=== PATIENT | male | born 1955 | race Caucasian/White ===

== ENCOUNTER 2019-04-22 12:58 | Inpatient (IN) | payer BC ==
[~2019-04-22] VITALS: Ht 182.9 cm; Wt 145.1 kg
[~2019-04-22 12:58] MED LIST: BACTRIM DS TAB1 EACH; CIPRO500 MG PO; HYDROCODON-ACE1 EAC5 PO; LISINOPRIL20 MG PO
[2019-04-22 14:22] VITALS: BP 148/76
[2019-04-22 14:39] LABS: HEMATOCRIT 37.4 % (42.0-52.0); HEMOGLOBIN 12.6 gm/dL (14.0-18.0); MCH 29.2 pg (26.0-34.0); MCHC 33.6 g/dL (28.0-37.0); MCV 86.8 fL (80.0-100.0); RBC 4.31 mil/uL (4.50-6.00); RDW 13.8 % (10.5-14.5); WBC 10.1 thou/uL (4.0-11.0)
[2019-04-22 14:53] LABS: CALCIUM 9.4 mg/dL (8.5-10.1); CREATININE 1.4 mg/dL (0.7-1.3)
[2019-04-22 19:00] VITALS: BP 172/92
[2019-04-22 19:47] VITALS: BP 164/80
--- NOTE | 2019-04-22 20:22 | NUR ---
PATIENT ARRIVED TO FLOOR VIA BED AT 1840, DROWSY BUT EASILY AROUSED. ORIENTED X 4. WITH PATIENT. HEMOVAC IN PLACE TO LEFT KNEE DRAINING SANGUINOUS DRAINAGE. RADHA DRESSING COMPRESSED AND INTACT. PROVIDED SOME ICE CHIPS. ICE BAG IN PLACE TO LEFT KNEE. REPORT GIVEN TO MARGARITA HUMMEL.
[2019-04-22 23:50] VITALS: BP 133/64
--- NOTE | 2019-04-23 03:27 | NUR ---
ASSUMED CARE OF PT AT 1900HRS. PT IS AOX4 AND LETS NEEDS BE KNOWN. PT IS POST PROCEDURE DAY 0 AND DOES NOT HAVE ANY S/S OF COMPLICATIONS. FALL PRECAUTIONS IS IN PLACE. IS AT BEDSIDE. PT WAS ABLE TO GET COMFORTABLE AND SLEEP PART OF THE SHIFT. PT VOIDED. WILL CONTINUE TO MONITOR.
[2019-04-23 04:00] VITALS: BP 133/68
[2019-04-23 05:43] LABS: HEMATOCRIT 34.1 % (42.0-52.0); HEMOGLOBIN 11.5 gm/dL (14.0-18.0); MCH 29.3 pg (26.0-34.0); MCHC 33.6 g/dL (28.0-37.0); MCV 87.2 fL (80.0-100.0); RBC 3.91 mil/uL (4.50-6.00); RDW 13.8 % (10.5-14.5); WBC 8.5 thou/uL (4.0-11.0)
[2019-04-23 08:45] VITALS: BP 157/76
--- NOTE | 2019-04-23 08:48 | O ---
[facility] [place] [address] OPERATIVE REPORT Name: NANDO SANDERS Room #: 454-P [facility] IN M.R.#: [id number] Admission: 04/22/19 Attend Phys: Zen Shaikh MD Discharge: Date of : 53 Report #: [id number] THIS REPORT FOR: //name// CC: XU physician/PCP FAM unknown RONALDO PARKER Zen Shaikh DATE OF SERVICE: 04/22/2019 PREOPERATIVE DIAGNOSIS: Left unicompartmental knee arthroplasty infection. POSTOPERATIVE DIAGNOSIS: Left unicompartmental knee arthroplasty infection. PROCEDURE: I and D of left unicompartmental knee arthroplasty. SURGEON: Zen Shaikh MD CHARGE MASTER COORDINATOR: Lyndsay Maguire PA-C. ANESTHESIA: LMA. ESTIMATED BLOOD LOSS: 25 mL. SPECIMENS: Cultures were taken x 2. COMPLICATIONS: None. CONDITION UPON LEAVING THE OPERATING ROOM: Stable. INDICATIONS FOR PROCEDURE: The patient is a 63-year-old gentleman who had a left unicompartmental knee done on 03/21/2019. He did well up until about a week ago where he started to experience increasing pain and this morning, he started having drainage from his incision and presented to the office today with slight erythema surrounding his incision as well as serosanguineous drainage. It was felt that he perhaps had a postoperative hematoma versus a deep infection. After discussion with he and his , they elected for I and D of his left knee. DESCRIPTION OF PROCEDURE: Risks, benefits, alternatives, complications were discussed in detail with the patient including but not limited to risk of anesthesia, risk of damage to nerves, arteries, blood vessels, risk for infection, bleeding, risk for continued infection, need for reoperation including stage explantation with reimplantation. Informed consent was obtained from the patient. Left knee was appropriately marked in the preoperative holding area. Preoperative antibiotics were held until intraoperative cultures [address] [address] OPERATIVE REPORT Name: NANDO SANDERS Room #: 454-P [facility] IN M.R.#: [id number] Admission: 04/22/19 Attend Phys: Zen Shaikh MD Discharge: Date of : 53 Report #: [id number] could be obtained. The patient was brought to the operating room and placed in supine position on the operating room table. LMA anesthesia was induced without complications. Left lower extremity was prepped and draped in normal sterile fashion. Timeout was performed, properly identifying the patient and procedure as well as the instrumentation. All in the operating room were in agreement. The incision was then opened with a 10 blade and monitored deep tissues, there was a large amount of cloudy fluid. Cultures of this were taken. The medial retinacular repair was opened and there was cloudy fluid noted in the joint. Cultures of this were also taken. The knee was then thoroughly irrigated with normal saline using pulse lavage and the retinacular tear, an opening was repaired with 0 Vicryl. A drain was placed deep in the joint as well as superficial to the fascial closure. A gram of vancomycin was placed deep in the joint prior to closure. The skin was closed with 2-0 Vicryl, skin belinda and a RADHA dressing was applied. The patient tolerated this procedure well and went to the recovery room under care of anesthesia postoperatively. <ELECTRONICALLY SIGNED> By: Zen Shaikh MD 04/23/19 0848 [id number] Zen Shaikh MD /nt
--- NOTE | 2019-04-23 15:19 | NUR ---
dp sent referral to [facility], dp notified Juanjo at [facility] of referral
[2019-04-23 15:45] VITALS: BP 162/81
--- NOTE | 2019-04-23 16:34 | NUR ---
PT A&OX4, VSS, PAIN IN RIGHT KNEE. PAIN MANAGED WITH REPOSITIONING, ICE PACK, AND MEDICATION. PATIENT HAS REFUSED THERAPY D/T PAIN. THIS NURSE IS GIVING PAIN MEDICATON OFTEN POSSIBLE. PATIENT ABLE TO PIVOT ON OPPOSITE LEG TO BEDSIDE COMMODE. BOWEL SOUNDS ACTIVE, URINATING, NO BM YET. ORDER FOR PICC PLACED, LUCIANA YEN/SUNIL IN PLACE. WILL CONTINUE TO MONITOR.
--- NOTE | 2019-04-23 16:43 | NUR ---
PT ADMITTED RETLATED TO LEFT KNEE PAIN AND DRAINAGE. CM REVIEWED CHART AND SPOKE WITH CARE TEAM. CM MET WITH PT AT BEDSIDE THIS DAY. CM MET WITH PT AND SPOUSE AT BEDSIDE THIS DAY. PT IS A&O X4. CM ROLE INTRODUCED. PT INDICATED HE LIVES IN A HOUSE WITH HIS SPOUSE WITH 2 STEPS TO ENTER AND NO STEPS INSIDE. PT INDICATED HE HAS A SCOOTER, FWW, CRUTCHES, AND A WHEELCHAIR FOR HOME USE. PT INDICATED HIS PCP WILL BE DR. DALLAS KENNY. HE INDICATED HE HAD HOME INFUSION IN THE [place]. CM SENT REFERRAL TO [facility] AND THEY INDICATED THAT PT IS COVERED AT %100 FOR HOME INFUSION UPON DC. CM TO FOLLOW INDICATED WITH DC PLANNING.
--- NOTE | 2019-04-23 18:46 | NUR ---
VASCULAR ACCESS CONSULTED FOR PICC PLACEMENT.PT'S LABS,MEDS,HISTORY ,ORDER AND CONSENT REVIEWED. DISCUSSED BENEFITS AND RISKS OF PICC WITH PT, VERBALIZED UNDERSTANDING. SRIKANTH BASILIC WAS WIDELY PATENT WITH USG. 4FR SL POWER PICC TRIMMED TO 50CM INSERTED TO 0CM EXTERNAL PER HOSPITAL P&P. PT TOLERATED WELL. STAT CXR ORDERED
[2019-04-23 20:00] VITALS: BP 163/74
--- NOTE | 2019-04-23 20:29 | NUR ---
PICC REPOSITIONED WITHDREW TOTAL OF 4CM AFTER SEVERAL CXR'S. MELISSA MUNOZ. PICC RELEASED FOR IMMEDIATE USE PER PROTOCOL TO JONATHAN AVILA
--- NOTE | 2019-04-24 04:31 | NUR ---
PATIENT ALERT AND ORIENTED X4. AT BEDSIDE. PT AGGITATED BECAUSE NOT GETTING THE PAIN MED HE IS USED TO GETTING AT HOME. CALLED DR MENIDETA'S OFFICE TO INCREASE, IT WAS. AFTER HIS ANSWERING SERVICE CALLED SEVERAL TIMES . DRESSING ON L KNEE DRY AND INTACT. PASSING FLATUS BUT NO BM YET. SLEPT OFF AND ON DURING NIGHT.
[2019-04-24 07:45] VITALS: BP 161/92
[2019-04-24 08:21] LABS: HEMATOCRIT 34.1 % (42.0-52.0); HEMOGLOBIN 11.5 gm/dL (14.0-18.0); MCH 29.3 pg (26.0-34.0); MCHC 33.7 g/dL (28.0-37.0); MCV 86.8 fL (80.0-100.0); RBC 3.93 mil/uL (4.50-6.00); WBC 9.3 thou/uL (4.0-11.0)
--- NOTE | 2019-04-24 10:56 | NUR ---
pt resting in bed alert xs 4 pt had some complaints that this nurse tried to resolve. including pain meds and therapy. pt seems more at ease.
--- NOTE | 2019-04-24 15:12 | NUR ---
wedding planner sent HH referral to [facility], patient to dc tomorrow and will be on iv antibiotics provided by [facility]. DP called [facility] and spoke with Cathy to make sure they received. Cathy verified they received referral.
[2019-04-24 15:25] VITALS: BP 165/77
--- NOTE | 2019-04-24 16:35 | NUR ---
CM SENT REFERRAL TO [facility] AND PT IS COVERED AT 100% FOR HOME INFUSION WITH THEM UPON DC. CM SENT REFERRAL TO [facility]. THEY ARE ABLE TO ACCEPT PT AND ARE AWAITING ORDERS. CM TO FOLLOW INDICATED WITH DC PLANNING.
[2019-04-24 20:19] VITALS: BP 137/82
--- NOTE | 2019-04-24 20:27 | NUR ---
PT UP IN RECLINER HAS TRIED TO WORK WITH THERAPY. MEDIACATION CHANGES SEE MAR. CONT ON IV ABT. RIGHT UPPER ARM PICC. PICCO DRESSING TO LEFT KNEE. PATIENT HAD X- LARGE BM TODAY. LUCIANA YEN ON. HAS SCD'S. STARTED LISINOPRIL. 40 MG PO DAILY. AT BEDSIDE. PT PLEASANT AND COOPERATIVE WITH CARE.
--- NOTE | 2019-04-24 22:13 | HC ---
[facility] [place] [address] CONSULTATION Name: NANDO SANDERS Room #: 454-P ADM IN M.R.#: [id number] Admission: 04/22/19 Attend Phys: Zen Shaikh MD Discharge: Date of : 53 Report #: [id number] THIS REPORT FOR: //name// CC: XU physician/PCP FAM unknown RONALDO ELENADillon DATE OF SERVICE: 04/22/2019 REASON FOR CONSULTATION: I was asked to evaluate concerning left unicompartmental knee arthroplasty, prosthetic joint infection. HISTORY OF PRESENT ILLNESS: The patient is a 63-year-old with history of degenerative arthritis. He had undergone a left unicompartmental knee arthroplasty on 03/21/2019. He noticed significant amount of postoperative pain, but was doing well with rehabilitation. 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 From discussion with the patient and his , it appears that he was doing a lot of activity including getting in and out of tractors and alike. Five days ago, had the acute onset of left knee pain and swelling. There was no drainage from his incision. The next day, he noticed chills and worsening pain. He called Dr. Shaikh who placed him on cephalexin. It was noted when he presented to his outpatient clinic that there was some serosanguineous drainage from his incision. He was therefore hospitalized after incision and drainage procedure. Cultures are pending. He is placed on vancomycin. Since hospitalization, he has been afebrile. He has a significant amount of pain. He has had a prior history of a Staph infection involving his right ankle several years ago. He has had no residual issues since then. He has had no recent dental work or other invasive procedures. Denies any other skin lesions. No history of MRSA infection. REVIEW OF SYSTEMS: Ten-point review was negative other than what is described above. ALLERGIES: None known. MEDICATIONS: As noted on his MAR including now vancomycin. SOCIAL HISTORY: He is a nonsmoker with no significant alcohol intake. Lives in [place] on a farm with his . FAMILY HISTORY: Noncontributory. PAST MEDICAL HISTORY: Hypertension, right lower leg hardware infection in 2013. Degenerative arthritis. He had a cholecystectomy, back surgery. [address] [address] CONSULTATION Name: NANDO SANDERS Room #: 454-P [facility] IN .R.#: [id number] Admission: 04/22/19 Attend Phys: Zen Shaikh MD Discharge: Date of : 53 Report #: [id number] PHYSICAL EXAMINATION: VITAL SIGNS: Afebrile and hemodynamically stable. Alert and cooperative. He is in a moderate amount of pain. SKIN: Without rash or decubitus. No palpable adenopathy. HEENT: Eyes, without scleral icterus. Mouth without mucositis. NECK: Supple. LUNGS: Clear. HEART: Regular, without murmur. ABDOMEN: Soft and nontender with no hepatosplenomegaly or mass. GENITAL AND RECTAL: Not performed. EXTREMITIES: Left knee had erythema surrounding the incision, mostly in the lower aspect. Moderate tenderness to palpation. RADHA dressing in place. 1+ edema involving the lower leg. Sensation intact in the left foot. Pulses were palpable, left foot. LABORATORY STUDIES: Reviewed. Sedimentation rate 93. CRP 311. Hemoglobin 11.5, WBC 8.5, platelet 271,000. Sodium 136, potassium 4, bicarbonate 22, creatinine 1.4. IMPRESSION: 1. A 63-year-old with left knee unicompartmental prosthesis for degenerative arthritis with early prosthetic joint infection. 2. Degenerative arthritis. 3. Acute renal insufficiency. RECOMMENDATION: We will continue vancomycin. Place a PICC catheter to arrange outpatient IV antibiotic infusion. He is postoperative day #1 from surgical debridement and retained prosthesis. We will adjust antibiotics pending culture results. <ELECTRONICALLY SIGNED> By: Morgan العلي MD 04/24/19 2213 [id number] [id number] Morgan العلي MD /nt
[2019-04-25 04:15] VITALS: BP 155/86
[2019-04-25 06:37] LABS: HEMATOCRIT 34.4 % (42.0-52.0); HEMOGLOBIN 11.6 gm/dL (14.0-18.0); MCH 29.1 pg (26.0-34.0); MCHC 33.9 g/dL (28.0-37.0); MCV 85.9 fL (80.0-100.0); RDW 13.9 % (10.5-14.5); WBC 8.1 thou/uL (4.0-11.0)
--- NOTE | 2019-04-25 07:54 | NUR ---
Assumed pt care at 1900. Pt is A/OX4,VSS. Up with min assist RW/GB. RADHA dsg patent on left knee with small serosanguineous drainage on proximal side. Medicated for pain with Oxy/Hydroxyzine with some relief reported. Resting at this time with no distress noted.
[2019-04-25 08:33] VITALS: BP 158/72
[2019-04-25 09:52] VITALS: BP 158/72
--- NOTE | 2019-04-25 10:12 | NUR ---
non profit financial controller sent operative reports to [facility]. .
--- NOTE | 2019-04-25 14:26 | NUR ---
PHYSICIAN INDICATED THAT PT ISN'T YET MEDICALLY STABLE TO DISCHARGE. ORTHO IS GOING TO TAKE PT FOR ANOTHER WASH OUT TOMRROW. CM NOTIFIED [facility] AND [facility]. BOTH CONTINUE TO FOLLOW FOR NEEDS UPON DC. CM TO FOLLOW INIDCATED WITH DC PLANNING.
[2019-04-25 17:58] VITALS: BP 154/80
--- NOTE | 2019-04-25 19:36 | NUR ---
Assumed care of pt at 0700. Pt alert and oriented x4. Dressing on left knee removed by surgeon. Light dressing placed on lt knee. Pt states pain is still uncontrolled. IV pain med administered. Surgery scheduled for tomorrow. Npo after midnight. Report given to oncoming RN.
[2019-04-25 19:40] VITALS: BP 161/82
[2019-04-26] VITALS (11 sets, daily range): BP systolic 122–161; BP diastolic 72–99
--- NOTE | 2019-04-26 01:51 | NUR ---
PATIENT IS AOX4 MAKES NEEDS KNOWN.CARE ASSUMED AT 1900, PATIENT WAS UP ON THE RECLINER UPSET D/T BEING IN PAIN FOR MANY YEARS. PATIENT IS NPO SINCE MIDNIGHT. PAIN CONTROLLED THIS SHIFT. LEFT KNEE DRESSING C/D/I. PATIENT WAS FRUSTRATED THIS SHIFT D/T INCREASED PAIN, PATIENT CONTINUES TO SAY HE NEEDS HIS LEG AMPUTATED AND THINKS THE PROCEDURE IN THE AM IS A WASTE OF TIME. PATIENT REASSURED BY THIS NURSE, THAT PAIN WILL BE CONTROLLED THIS SHIFT.PATIENT ASLEEP AT THIS TIME NO S/S OF PAIN OR DISCOMFORT. PATIENT NEEDS MAXIMUM ASSISTANCE WITH ADL, BED MOBILITY, TRANSFER AND TOILETING. SPOUSE AT BEDSIDE. PATIENT IN BED ASLEEP AT THIS TIME BREATHING REGULAR AND UNLABOURED.
[2019-04-26 05:16] LABS: HEMATOCRIT 35.2 % (42.0-52.0); HEMOGLOBIN 11.9 gm/dL (14.0-18.0); MCH 29.1 pg (26.0-34.0); MCHC 33.9 g/dL (28.0-37.0); MCV 85.8 fL (80.0-100.0); RBC 4.11 mil/uL (4.50-6.00); RDW 13.7 % (10.5-14.5); WBC 9.7 thou/uL (4.0-11.0)
[2019-04-26 05:26] LABS: CALCIUM 8.8 mg/dL (8.5-10.1); CREATININE 0.9 mg/dL (0.7-1.3); POTASSIUM 4.2 mmol/L (3.5-5.1)
--- NOTE | 2019-04-26 10:17 | NUR ---
Assess due to high BMI 43.4=extreme class III obesity. Admit for left knee sepsis/infection. I/D 04/22 and back to surgery today so npo status. Previously tolerating regular diet. Wt loss would be beneficial in recovery process. Available for consult if pt shows interest. Low nutrition risk
--- NOTE | 2019-04-26 15:03 | NUR ---
PATIENT CARE WAS ASSUMED AT 0715.PATIENT IS ALERT AND ORIETNED X4.PATIENT HAS PAIN IN LEFT KNEE AND RATES PAIN 10/10 WITH AND WITHOUT PAIN MEDS.LEFT KNEE IS SWOLLEN AND RED.PATIENT HAS BEEN NPO AFTER MIDNIGHT FOR PROCEDURE TO DO AND I&D/CLEAN WOUND OUT.CONSENT WAS SIGNED AND PLACED IN CHART. IS AT BEDSIDE.PT IS RESTING IN BED,WITH LEFT LEG ELEVATED.PT HAS CALL LIGHT,PHONE, AND PERSONAL BELONGINGS ARE WITHIN REACH.
--- NOTE | 2019-04-26 16:17 | NUR ---
CARE TEAM INDICATED THAT PT WILL LIKELY BE HERE OVER THE WEEKEND THEY DID ANOTHER WASH OUT TODAY. CM TO FOLLOW INDICATED WITH DC PLANNING. [facility] ARE FOLLOWING.
[2019-04-27 04:09] VITALS: BP 139/77
--- NOTE | 2019-04-27 04:52 | NUR ---
ASSUMED CARE OF PT AT 1900HRS. PT AOX4 AND LETS NEEDS BE KNOWN. FALL PRECAUTION IN PLACE. IS AT BEDSIDE. PT REPORTED SOME PAIN BUT SCHEDULED PAIN MEDS WERE ADEQUATE. ABX TREATMENT CONTINUED. WILL CONTINUE TO MONITOR.
--- NOTE | 2019-04-27 08:16 | O ---
[facility] [place] [place] [address] OPERATIVE REPORT Name: NANDO SANDERS Room #: 454-P ADM IN M.R.#: [id number] Admission: 04/22/19 Attend Phys: Zen Shaikh MD Discharge: Date of : 53 Report #: [id number] THIS REPORT FOR: //name// CC: XU physician/PCP FAM unknown RONALDO PARKER Zen Shaikh DATE OF SERVICE: 04/26/2019 PREOPERATIVE DIAGNOSIS: Infected left unicompartmental knee arthroplasty. POSTOPERATIVE DIAGNOSIS: Infected left unicompartmental knee arthroplasty. PROCEDURE PERFORMED: Irrigation and debridement of left unicompartmental knee arthroplasty with polyethylene exchange. SURGEON: Zen Shaikh M.D. TELEPHONE SERVICES SALES REPRESENTATIVE: Lyndsay Maguire PA-C. ANESTHESIA: LMA. TOURNIQUET TIME: 26 minutes. ESTIMATED BLOOD LOSS: 25 mL. COMPLICATIONS: None. SPECIMENS: Cultures were taken and sent. CONDITION UPON LEAVING THE OPERATING ROOM: Stable. INDICATIONS FOR PROCEDURE: The patient is a 63-year-old gentleman who previously had undergone I and D for an infected left unicompartmental knee arthroplasty 4 days ago. He has had increasing pain and drainage. It was decided to bring him back for repeat I and D with polyethylene exchange. He has grown out Staph aureus on his previous cultures. DESCRIPTION OF PROCEDURE: Risks, benefits, alternatives, complications were discussed in detail with the patient including but not limited to risk of anesthesia, risk of damage to nerves, arteries, blood vessels, risk for infection, bleeding, risk for continued infection, need for explantation and 2 staged procedure. Informed consent was obtained from the patient. The left knee was appropriately marked in the preoperative holding area. IV vancomycin was previously on board for preoperative antibiotics. He was brought to the [address] [address] OPERATIVE REPORT Name: NANDO SANDERS Room #: 454-P [facility] IN M.R.#: [id number] Admission: 04/22/19 Attend Phys: Zen Shaikh MD Discharge: Date of : 53 Report #: [id number] operating room and placed in supine position on operating room table. LMA anesthesia was induced without complication. Tourniquet was placed on the left thigh. Left lower extremity was prepped and draped in normal sterile fashion. Timeout was performed properly identifying the patient and procedure as well as instrumentation. All in the operating room were in agreement. The previous incision was then opened and dissection was easily taken down to the fascia. The fascia was opened and the previously placed sutures were removed. Cultures of the fluid were taken. The polyethylene liner for the unicompartmental knee was removed and the knee was thoroughly irrigated with normal saline using pulse lavage. After this, a new polyethylene liner size 9 was placed and a deep drain was placed and a gram of vancomycin was placed deep in the joint. Fascia was closed with 0 Vicryl, skin was closed with 2-0 Vicryl, 3-0 nylon and a RADHA dressing was applied. The patient tolerated this procedure well and went to recovery room under care of anesthesia postoperatively. <ELECTRONICALLY SIGNED> By: Zen Shaikh MD 04/27/19 0816 1544 [id number] Zen Shaikh MD /nt
[2019-04-27 08:55] VITALS: BP 164/85
--- NOTE | 2019-04-27 12:18 | NUR ---
Assumed pt care at 7am.Pt in bed very frustrated and depressed,cursing everytime he has to move his left leg.Emotional support given but pt wanted to talk to infectious dx doctor about plan to change iv antibiotic today.Dr العلي notified and message left via ans. service.Dr Shaikh and True here,order noted.Pt in chair at present with at bs.Medicated pt scheduled meds and prn.Will continue to monitor.
[2019-04-27 15:10] VITALS: BP 118/70
[2019-04-27 19:23] VITALS: BP 116/72
--- NOTE | 2019-04-28 04:40 | NUR ---
Pt. rested quietly during the night when checked on during frequent rounds. He does c/o pain to his left knee and scheduled pain meds given with adequate pain control. at the bedside all shift. Dressing to left knee is intact.
[2019-04-28 07:25] VITALS: BP 150/75
[2019-04-28 13:45] VITALS: BP 165/91
[2019-04-28 19:34] VITALS: BP 150/78
--- NOTE | 2019-04-28 21:23 | NUR ---
PT A&OX4, VSS, PAIN IN LEFT KNEE MANAGED WITH MEDICATION AND ICE PACKS. AT BEDSIDE. ANTIBIOTICS HUNG PER ORDERS. PATIENT HAS SENSATION IN LEFT LEG, COLOR IS APPROPRIATE FOR RACE, CAN MOVE TOES, PULSE 2+ AND WARM TO TOUCH. FALL PRECAUTIONS IN PLACE. NO SIGNS OF DISTRESS, SOA, OR CHEST PAIN. WILL CONTINUE TO MONITOR.
--- NOTE | 2019-04-29 05:18 | NUR ---
Pt. rested quietly at intervals during the night when checked on during frequent rounds. He c/o pain to his left knee and scheduled pain meds given (see emar) with some relief of pain noted. Dressing to his left knee is intact. at the bedside all shift.
[2019-04-29 08:12] VITALS: BP 126/64
--- NOTE | 2019-04-29 13:58 | NUR ---
CM FOLLOWED UP WITH PT AND SPOUSE AT BEDSIDE THIS AM. CM INDICATED THAT'S SUPPLIES AND DRUG FOR HOME INFUSION UPON DC IS COVERED AT 100% AND THAT [facility] IS ABLE TO ACCEPT FOR ADMISSION UPON DC. CM FAXED UPDATED DRUG ORDER TO [facility] AND IT WAS RECIEVED AND BENEFIT VERIFIED. CM TO FOLLOW INDICATED WITH DC PLANNING.
[2019-04-29 14:19] VITALS: BP 158/72
[2019-04-29] MEDS ORDERED: CYCLOBENZAPRINE5 MG PO (15:31)
[2019-04-29] MEDS ORDERED: NEURONTIN 300300 M1 PO (15:31)
[2019-04-29] MEDS ORDERED: NAPROXEN250 MG PO (15:31)
--- NOTE | 2019-04-29 17:02 | NUR ---
PT SET UP WITH [facility] AND [facility]. NEED MEDS COMPLETED IN THE DC ORDERS [facility] CAN'T DELIVER UNTIL THEY RECIEVE SIGNED ORDERS. CM MOTIFIED [facility] AND [facility] THAT PT WILL DC HOME TOMORROW.
--- NOTE | 2019-04-29 18:14 | NUR ---
PT STABLE THROUGHUT SHIFT. PAIN MEDICATION APPEARED TO CONTROL PAIN SUCCESSFULLY. PT UP TO CHAIR FOR SEVERAL HOURS WHICH HE TOLERATED WELL. PT WORKED WITH PT, FALL PRECAUTIONS IN PLACE.
[2019-04-29 19:26] VITALS: BP 117/65
--- NOTE | 2019-04-30 04:03 | NUR ---
Pt. rested quietly at intervals during the night when checked on during frequent rounds. He did have a dose of prn pain meds for breakthrough pain (see emar) with some relief of pain noted. Scheduled pain meds given with some relief of pain noted. Dressing to his left knee is dry and intact. Spouse at the bedside all shift.
[2019-04-30 05:03] VITALS: BP 119/69
[2019-04-30 08:43] VITALS: BP 126/64
[2019-04-30 10:00] VITALS: BP 126/64
--- NOTE | 2019-04-30 13:25 | NUR ---
DISCHARGE ORDERS COMPLETED PER ATTENDING. PATIENT DISCHARGING TO HOME WITH [facility] AND [facility]. FAXED DISCHARGE ORDERS TO [facility], [facility], VERIFIED RECEIVED. PER [facility], MEDICATIONS HAVE BEEN MADE AND WILL BE DELIVERED TO PATIENT SOON. DISCHARGE/HOME HEALTH ORDERS FAXED TO [facility], CALL RECEIVED FROM STEFANIE BRAR. MAYKEL TO FACILITATE PATIENTS HH NEEDS. UNIT SW AWARE.
--- NOTE | 2019-04-30 15:43 | NUR ---
Assumed pt care this am. vs stable. Pain managed with medications. pt is able to work with PT and OT with no issues. Medication and diet are well tolerated. Fall precautions in place. No signs or verbalizations of distress have been noted. PICC line patent and care done. POC followed, RADHA dressing is clean dry and intact. DC and HH needs done, medications delivered to the pts room prior to DC. DC instructions and prescriptions given. Pt is leaving with his .
== END 2019-04-30 15:59 | disposition home health service (06) | DRG 486 ==
LOC: TBA 12:58 → 4W 19:01 → ENTRNSPT 04-30 15:01 → EDTRNSPTSTS 04-30 15:34 → 4W 04-30 15:59
PROVIDERS: Anesthesiology; ADMIT Orthopaedic Surgery
PROC: 0S9D00Z Drainage of Left Knee Joint with Drainage Device, Open Approach (ICD-10-PCS; principal; 2019-04-22)
PROC: 02H633Z Insertion of Infusion Device into Right Atrium, Percutaneous Approach (ICD-10-PCS; 2019-04-23)
PROC: B244ZZZ Ultrasonography of Right Heart (ICD-10-PCS; 2019-04-23)
PROC: 0SPD09Z Removal of Liner from Left Knee Joint, Open Approach (ICD-10-PCS; 2019-04-26)
PROC: 0SUW09Z Supplement Left Knee Joint, Tibial Surface with Liner, Open Approach (ICD-10-PCS; 2019-04-26)
DX: T84.54XA Infection and inflammatory reaction due to internal left knee prosthesis, initial encounter (principal); M00.062 Staphylococcal arthritis, left knee; I10 Essential (primary) hypertension; N28.9 Disorder of kidney and ureter, unspecified; B95.61 Methicillin susceptible Staphylococcus aureus infection as the cause of diseases classified elsewhere; Y83.1 Surgical operation with implant of artificial internal device as the cause of abnormal reaction of the patient, or of later complication, without mention of misadventure at the time of the procedure; Y92.89 Other specified places as the place of occurrence of the external cause; Z90.49 Acquired absence of other specified parts of digestive tract; Z88.1 Allergy status to other antibiotic agents; Z88.8 Allergy status to other drugs, medicaments and biological substances
CPT/HCPCS: 10047; 27000; 50010; 50101; 50415; 50954; 51412; 53078; 54118; 55389; 56527; 56528; 57095; 57103; 57180; 62110; 62900; 70005